=== PATIENT | male | born 1940 | race Hispanic/Latino ===

== ENCOUNTER 2017-12-12 01:36 | Emergency (ER) | payer OTHER ==
[2017-12-12 01:57] LABS: APPEARANCE,URINE Clear (CLEAR); BILIRUBIN,URINE Negative (NEGATIVE); COLOR,URINE Yellow (YELLOW); GLUCOSE, URINE (UA) Negative (NEGATIVE); KETONES,URINE Negative (NEGATIVE); LEUKOCYTE ESTERASE ,URINE Large (NEGATIVE); NITRATE,URINE Negative (NEGATIVE); OCCULT BLOOD,URINE Moderate (NEGATIVE); PH,URINE 6.5 (5.0-8.0); PROTEIN,URINE POS 2+ (NEGATIVE); UROBILINOGEN,URINE 0.2 mg/dL (0.2-1.0)
[2017-12-12 02:28] LABS: BACTERIA,URINE Few /HPF (None Seen); WBC,URINE 26-50 /HPF (0-1)
[2017-12-12] MEDS ORDERED: SODIUM CHLORIDE 0.9% 1000ML 1,000 ML IV ONE (02:33)
[2017-12-12] MEDS ORDERED: LEVOFLOXACIN 500 MG/D5W 100 ML 100 ML ONE (02:34)
== END 2017-12-12 04:06 | disposition home or self-care (01) ==
LOC: EDH 01:36
DX: N39.0 Urinary tract infection, site not specified (principal); I10 Essential (primary) hypertension; E78.5 Hyperlipidemia, unspecified
CPT/HCPCS: 81001; 87088; 87186; 96365; 99284; J1956; J7030

== ENCOUNTER 2021-11-17 21:47 | Observation (INO) | payer OTHER ==
[~2021-11-17] VITALS: Ht 162.6 cm; Wt 96.0 kg
[2021-11-17 23:14] LABS: ABG HCO3 25.4 mmol/L (21.0-28.0); ABG OXYGEN SATURATION 94.6 % (95.0-99.0); ABG PCO2 40 mmHg (35-48)
[2021-11-17 23:21] LABS: BASOPHILS % (AUTO) 0.2 % (0.0-5.0); EOSINOPHILS % (AUTO) 1.4 % (0.0-8.0); HEMATOCRIT 38.1 % (42-54); LYMPHOCYTES % (AUTO) 23.7 % (21.0-51.0); MEAN CORPUSCULAR HEMOGLOBIN 28.5 pg (27.0-33.0); MEAN CORPUSCULAR HGB CONC 34.6 g/dL (32.0-36.0); MEAN CORPUSCULAR VOLUME 82.3 fL (79-99); MONOCYTES % (AUTO) 13.6 % (3.0-13.0); NEUTROPHILS % (AUTO) 60.7 % (40.0-77.0); PLATELET COUNT (AUTO) 190 K/uL (130-400); RED BLOOD CELL COUNT(AUTO) 4.63 MIL/uL (4.50-6.20); RED CELL DISTRIBUTION WIDTH 12.4 % (11.0-15.5); WHITE BLOOD COUNT (AUTO) 5.5 K/uL (4.8-10.8)
[2021-11-17] MEDS ORDERED: SOLU-MEDROL 125MG VIAL IVP ONE (23:30)
[2021-11-17] MEDS ORDERED: ALBUTEROL 0.083% 2.5 MG/3 ML INH IH ONE ×3 (23:30)
[2021-11-17 23:31] LABS: CREATININE 0.9 mg/dL (0.5-1.5); POTASSIUM 3.3 mmol/L (3.5-5.1)
[2021-11-17 23:36] LABS: ALBUMIN 3.5 g/dL (3.5-5.0); BILIRUBIN,TOTAL 0.4 mg/dL (0.2-1.0); TOTAL PROTEIN, SERUM 6.7 g/dL (6.0-8.3)
[2021-11-17 23:50] LABS: B-TYPE NATRIURETIC PEPTIDE 38 pg/mL (0-100)
[2021-11-18] MEDS ORDERED: ALBUTEROL 0.083% 2.5 MG/3 ML INH IH ONE (01:00)
[2021-11-18] MEDS ORDERED: AZITHROMYCIN 500MG+NS 250ML IVPB ONE (01:00)
[2021-11-18] MEDS ORDERED: CEFTRIAXONE 1G VIAL IVP ONE (01:00)
[2021-11-18] MEDS ORDERED: LIDOCAINE HCL 2% VISCOUS 15 ML UDCUP PO ONE (01:00)
[2021-11-18] MEDS ORDERED: MAG/ALUM/SIMETH 30 ML UDCUP PO ONE (01:00)
[2021-11-18] MEDS ORDERED: ONDANSETRON 4MG INJ IV PRN (01:30)
[2021-11-18] MEDS: CEFTRIAXONE 1G VIAL IV SCH (01:30)
[2021-11-18] MEDS: GUAIFENESIN-CODEINE 5 ML SYRUP PO PRN ×2 (02:04→21:25)
[2021-11-18] MEDS ORDERED: CARV12.511 PO (02:11)
[2021-11-18] MEDS ORDERED: SOLI10TA7 PO (02:11)
[2021-11-18] MEDS ORDERED: PRED5DRO25 OP (02:11)
[2021-11-18] MEDS ORDERED: LOTE5OS OD (02:11)
[2021-11-18] MEDS ORDERED: OMEP40CA21 PO (02:11)
[2021-11-18] MEDS ORDERED: ERGO500093 PO (02:11)
[2021-11-18] MEDS ORDERED: AMLO-143 PO (02:11)
[2021-11-18] MEDS ORDERED: ROSU20TA31 PO (02:11)
[2021-11-18] MEDS ORDERED: HYDR25TA PO (02:11)
[2021-11-18] MEDS: POTASSIUM CHLORIDE 10% ELIXIR 20 MEQ/15 ML UDCUP PO PRN ×3 (02:23→06:53)
[2021-11-18] MEDS ORDERED: LIDOCAINE HCL-MPF 1% 2ML VIAL IV PRN (02:30)
[2021-11-18] MEDS ORDERED: POTASSIUM CHLORIDE 10MEQ/100ML 100 ML IV PRN (02:30)
[2021-11-18 03:05] VITALS: BP 148/84
[2021-11-18] MEDS ORDERED: 0.9% NACL 250ML 250 ML ONE (05:31)
[2021-11-18] MEDS: DOXYCYCLINE 100MG+NS 250ML 250 ML IV SCH ×2 (05:38→13:12)
[2021-11-18] MEDS: IPRATROPIUM/ALBUTEROL SULFATE 3 ML SOLUTION IH SCH ×4 (06:21→23:37)
[2021-11-18 08:00] VITALS: BP 139/74
[2021-11-18] MEDS: ENOXAPARIN SODIUM 40 MG/0.4 ML SYRINGE SQ SCH (08:22)
[2021-11-18] MEDS: OSELTAMIVIR PHOSPHATE 75 MG CAP PO SCH ×2 (08:22→21:25)
[2021-11-18] MEDS ORDERED: SOLU-MEDROL 125MG VIAL IV SCH (09:00)
[2021-11-18] MEDS ORDERED: FAMOTIDINE 20MG TAB PO SCH (09:00)
[2021-11-18] MEDS: SOLIFENACIN 10 MG PO SCH (09:00)
[2021-11-18] MEDS ORDERED: LOTEPREDNOL 0.2% OD SCH (09:00)
[2021-11-18 09:18] LABS: BASOPHILS % (AUTO) 0.2 % (0.0-5.0); HEMATOCRIT 41.3 % (42-54); LYMPHOCYTES % (AUTO) 8.8 % (21.0-51.0); MEAN CORPUSCULAR HEMOGLOBIN 28.5 pg (27.0-33.0); MEAN CORPUSCULAR HGB CONC 34.1 g/dL (32.0-36.0); MEAN CORPUSCULAR VOLUME 83.6 fL (79-99); MONOCYTES % (AUTO) 1.4 % (3.0-13.0); NEUTROPHILS % (AUTO) 89.2 % (40.0-77.0); PLATELET COUNT (AUTO) 214 K/uL (130-400); RED BLOOD CELL COUNT(AUTO) 4.94 MIL/uL (4.50-6.20); RED CELL DISTRIBUTION WIDTH 12.5 % (11.0-15.5)
[2021-11-18 09:43] LABS: ALBUMIN 3.7 g/dL (3.5-5.0); BILIRUBIN,TOTAL 0.5 mg/dL (0.2-1.0); CREATININE 1.1 mg/dL (0.5-1.5); THYROID STIMULATING HORMONE 0.97 uIU/mL (0.36-3.74); TOTAL PROTEIN, SERUM 7.4 g/dL (6.0-8.3)
[2021-11-18] MEDS: PANTOPRAZOLE 40 MG TAB DR PO SCH (09:46)
[2021-11-18] MEDS: CARVEDILOL 12.5 MG TABLET PO SCH ×2 (09:46→21:25)
[2021-11-18 10:23] LABS: ERYTHROCYTE SEDIMENTATION RATE 8 MM/HR (0-20)
[2021-11-18 11:52] VITALS: BP 135/81
[2021-11-18 12:29] LABS: HEMOGLOBIN A1C 6.7 % (4.0-6.0)
[2021-11-18] MEDS: 0.9%NACL 1000ML 1,000 ML IV SCH (13:12)
[2021-11-18] MEDS: AMLODIPINE 5 MG TAB PO SCH (13:13)
[2021-11-18] MEDS: FLUTICASONE PROPIONATE 50MCG/SPRAY 16 GM BOTTLE EN SCH ×2 (13:15→21:00)
[2021-11-18] MEDS: PREDNISOLONE 1% DROPS OP SCH ×3 (13:16→21:00)
[2021-11-18 16:00] VITALS: BP 143/82
[2021-11-18] MEDS: BENZONATATE 100 MG CAPSULE PO SCH (16:38)
[2021-11-18] MEDS: BUDESONIDE 0.5 MG/2 ML INH IH SCH (18:53)
[2021-11-18 20:03] VITALS: BP 146/62
[2021-11-18] MEDS: ATORVASTATIN 40 MG TABLET PO SCH (21:24)
[2021-11-18] MEDS: INSULIN HUMULIN R 100 UNIT/ML 3ML SQ SCH (22:10)
[2021-11-18 23:53] VITALS: BP 152/73
[2021-11-19] MEDS ORDERED: 0.9% NACL 250ML 250 ML ONE ×2 (01:13→13:49)
[2021-11-19] MEDS: DOXYCYCLINE 100MG+NS 250ML 250 ML IV SCH ×2 (01:28→14:03)
[2021-11-19] MEDS: CEFTRIAXONE 1G VIAL IV SCH (01:28)
[2021-11-19 04:06] VITALS: BP 165/79
[2021-11-19 04:52] LABS: HEMATOCRIT 36.7 % (42-54); LYMPHOCYTES % (AUTO) 11.2 % (21.0-51.0); MEAN CORPUSCULAR HGB CONC 33.5 g/dL (32.0-36.0); MEAN CORPUSCULAR VOLUME 83.4 fL (79-99); MONOCYTES % (AUTO) 6.8 % (3.0-13.0); NEUTROPHILS % (AUTO) 81.7 % (40.0-77.0); PLATELET COUNT (AUTO) 193 K/uL (130-400); RED CELL DISTRIBUTION WIDTH 12.5 % (11.0-15.5); WHITE BLOOD COUNT (AUTO) 7.3 K/uL (4.8-10.8)
[2021-11-19 05:25] LABS: CREATININE 0.7 mg/dL (0.5-1.5); MAGNESIUM 2.4 mg/dL (1.80-2.40); POTASSIUM 3.7 mmol/L (3.5-5.1)
[2021-11-19] MEDS: IPRATROPIUM/ALBUTEROL SULFATE 3 ML SOLUTION IH SCH ×4 (06:09→23:13)
[2021-11-19] MEDS: BUDESONIDE 0.5 MG/2 ML INH IH SCH ×2 (06:09→17:40)
[2021-11-19] MEDS: INSULIN HUMULIN R 100 UNIT/ML 3ML SQ SCH ×4 (06:26→21:00)
[2021-11-19] MEDS: 0.9%NACL 1000ML 1,000 ML IV SCH (06:30)
[2021-11-19] MEDS: BENZONATATE 100 MG CAPSULE PO SCH ×4 (07:37→23:29)
[2021-11-19 08:00] VITALS: BP 121/70
[2021-11-19] MEDS: SOLIFENACIN 10 MG PO SCH (09:00)
[2021-11-19] MEDS: PREDNISOLONE 1% DROPS OP SCH (09:00)
[2021-11-19] MEDS: FLUTICASONE PROPIONATE 50MCG/SPRAY 16 GM BOTTLE EN SCH ×2 (09:00→21:32)
[2021-11-19] MEDS: CARVEDILOL 12.5 MG TABLET PO SCH ×2 (10:49→21:09)
[2021-11-19] MEDS: PANTOPRAZOLE 40 MG TAB DR PO SCH (10:50)
[2021-11-19] MEDS: AMLODIPINE 5 MG TAB PO SCH (10:50)
[2021-11-19] MEDS: ENOXAPARIN SODIUM 40 MG/0.4 ML SYRINGE SQ SCH (10:50)
[2021-11-19] MEDS: OSELTAMIVIR PHOSPHATE 75 MG CAP PO SCH ×2 (11:03→21:09)
[2021-11-19] MEDS: GUAIFENESIN-CODEINE 5 ML SYRUP PO PRN ×2 (11:44→21:26)
[2021-11-19 12:00] VITALS: BP 127/76
[2021-11-19] MEDS: KCL 20 MEQ ERTAB PO PRN ×2 (14:07→21:12)
[2021-11-19 16:00] VITALS: BP 135/75
[2021-11-19 19:59] VITALS: BP 172/66
[2021-11-19] MEDS: ATORVASTATIN 40 MG TABLET PO SCH (21:09)
[2021-11-19 23:22] VITALS: BP 159/85
[2021-11-20] MEDS: DOXYCYCLINE 100MG+NS 250ML 250 ML IV SCH (01:41)
[2021-11-20 04:13] VITALS: BP 147/75
[2021-11-20 05:04] LABS: EOSINOPHILS % (AUTO) 0.4 % (0.0-8.0); MEAN CORPUSCULAR HEMOGLOBIN 28.8 pg (27.0-33.0); MEAN CORPUSCULAR HGB CONC 34.1 g/dL (32.0-36.0); MEAN CORPUSCULAR VOLUME 84.5 fL (79-99); MONOCYTES % (AUTO) 9.9 % (3.0-13.0); NEUTROPHILS % (AUTO) 66.2 % (40.0-77.0); PLATELET COUNT (AUTO) 190 K/uL (130-400); RED BLOOD CELL COUNT(AUTO) 4.38 MIL/uL (4.50-6.20); RED CELL DISTRIBUTION WIDTH 12.8 % (11.0-15.5); WHITE BLOOD COUNT (AUTO) 7.8 K/uL (4.8-10.8)
[2021-11-20 05:12] LABS: APPEARANCE,URINE Clear (CLEAR); BILIRUBIN,URINE Negative (NEGATIVE); COLOR,URINE Yellow (YELLOW); GLUCOSE, URINE (UA) Negative (NEGATIVE); KETONES,URINE Negative (NEGATIVE); LEUKOCYTE ESTERASE ,URINE Negative (NEGATIVE); NITRATE,URINE Negative (NEGATIVE); OCCULT BLOOD,URINE Negative (NEGATIVE); PH,URINE 6.5 (5.0-8.0); PROTEIN,URINE Trace mg/dL (NEGATIVE)
[2021-11-20 05:37] LABS: ALBUMIN 3.1 g/dL (3.5-5.0); BILIRUBIN,TOTAL 0.5 mg/dL (0.2-1.0); CREATININE 0.8 mg/dL (0.5-1.5); TOTAL PROTEIN, SERUM 6.2 g/dL (6.0-8.3)
[2021-11-20] MEDS: BUDESONIDE 0.5 MG/2 ML INH IH SCH (06:19)
[2021-11-20] MEDS: IPRATROPIUM/ALBUTEROL SULFATE 3 ML SOLUTION IH SCH (06:19)
[2021-11-20] MEDS: INSULIN HUMULIN R 100 UNIT/ML 3ML SQ SCH (06:42)
[2021-11-20] MEDS: BENZONATATE 100 MG CAPSULE PO SCH (06:44)
[2021-11-20 08:00] VITALS: BP 188/91
[2021-11-20] MEDS: AMLODIPINE 5 MG TAB PO SCH (08:22)
[2021-11-20] MEDS: PANTOPRAZOLE 40 MG TAB DR PO SCH (08:23)
[2021-11-20] MEDS: CARVEDILOL 12.5 MG TABLET PO SCH (08:24)
[2021-11-20] MEDS: ENOXAPARIN SODIUM 40 MG/0.4 ML SYRINGE SQ SCH (08:26)
[2021-11-20] MEDS: FLUTICASONE PROPIONATE 50MCG/SPRAY 16 GM BOTTLE EN SCH (08:27)
[2021-11-20] MEDS: SOLIFENACIN 10 MG PO SCH (08:29)
[2021-11-20] MEDS: OSELTAMIVIR PHOSPHATE 75 MG CAP PO SCH (08:34)
[2021-11-20] MEDS ORDERED: FLUC150T PO (09:29)
[2021-11-20] MEDS ORDERED: OSEL75 PO (09:29)
[2021-11-20] MEDS ORDERED: GUAIFENESIN-DM 200/20 MG 10 ML PO PRN (11:00)
[2021-11-20 12:00] VITALS: BP 123/72
== END 2021-11-20 15:01 | disposition home or self-care (01) ==
LOC: EDH 21:47 → EDHIP 11-18 01:28 → INTOOBSV 11-18 01:28 → 3BH 11-18 03:04
PROVIDERS: ADMIT Internal Medicine; ATTEND Internal Medicine
DX: J09.X2 Influenza due to identified novel influenza A virus with other respiratory manifestations (principal); Z20.822 Contact with and (suspected) exposure to COVID-19; J45.901 Unspecified asthma with (acute) exacerbation; J18.9 Pneumonia, unspecified organism; I11.0 Hypertensive heart disease with heart failure; I50.9 Heart failure, unspecified; E87.6 Hypokalemia; E86.1 Hypovolemia; E87.1 Hypo-osmolality and hyponatremia; R32 Unspecified urinary incontinence; C61 Malignant neoplasm of prostate; E78.00 Pure hypercholesterolemia, unspecified; E78.5 Hyperlipidemia, unspecified; Z85.46 Personal history of malignant neoplasm of prostate; Z87.442 Personal history of urinary calculi; Z92.21 Personal history of antineoplastic chemotherapy; Z79.899 Other long term (current) drug therapy; Z98.890 Other specified postprocedural states
CPT/HCPCS: 36415 ×4; 36600; 71045 ×2; 80048; 80053 ×3; 81003; 82550; 82803; 82948 ×6; 83036; 83735 ×2; 83880; 84100; 84145 ×2; 84443; 84484; 85025 ×4; 85651; 86140; 87040 ×2; 87071; 87205; 87635; 87804 ×2; 93005; 94640 ×13; 94664; 94760 ×2; 96365; 96366 ×5; 96367; 96372 ×3; 96375 ×2; 96376 ×2; 97161; 99285; C9803; G0378 ×5; J0456; J0696 ×2; J1650 ×3; J1815; J2930 ×2; J3490 ×5; J7050 ×3; J7510

== ENCOUNTER 2022-03-01 21:59 | Emergency (ER) | payer OTHER ==
[~2022-03-01] VITALS: Ht 167.6 cm; Wt 92.1 kg
[~2022-03-01 21:59] MED LIST: AMLO-143 PO; CARV12.511 PO; ERGO500093 PO; FLUC150T PO; HYDR25TA PO; LOTE5OS OD; OMEP40CA21 PO; OSEL75 PO; PRED5DRO25 OP; ROSU20TA31 PO; SOLI10TA7 PO
[2022-03-01 23:48] VITALS: BP 151/74
[2022-03-01 23:56] LABS: APPEARANCE,URINE CLEAR (CLEAR); BILIRUBIN,URINE NEGATIVE (NEGATIVE); COLOR,URINE YELLOW (YELLOW); GLUCOSE, URINE (UA) NEGATIVE (NEGATIVE); KETONES,URINE NEGATIVE (NEGATIVE); LEUKOCYTE ESTERASE ,URINE NEGATIVE (NEGATIVE); NITRATE,URINE NEGATIVE (NEGATIVE); OCCULT BLOOD,URINE NEGATIVE (NEGATIVE); PROTEIN,URINE NEGATIVE (NEGATIVE); UROBILINOGEN,URINE 0.2 mg/dL (0.2-1.0)
== END 2022-03-02 01:09 | disposition home or self-care (01) ==
LOC: EDH 21:59
DX: R42 Dizziness and giddiness (principal); I10 Essential (primary) hypertension; K21.9 Gastro-esophageal reflux disease without esophagitis; E78.00 Pure hypercholesterolemia, unspecified; Z79.899 Other long term (current) drug therapy; Z98.890 Other specified postprocedural states
CPT/HCPCS: 81003; 93005

== ENCOUNTER 2025-07-20 01:22 | Inpatient (IN) | payer OTHER ==
[~2025-07-20] VITALS: Ht 167.6 cm; Wt 78.5 kg
--- NOTE | 2025-07-20 01:42 | EKG ---
[facility] Test Date: 2025-07-20 Test Time: 01:33:49 Pat Name: SIMON MCGREGOR Department: ED Room: 425 Gender: M Call Out Clerk: [id number] : 1940 Requested By: DARRELL ALMONTE Order Number: [id number] Reading MD: Jermaine Ray Measurements Intervals [place] Rate: 61 P: 56 [place]: 195 QRS: 25 QRSD: 80 T: 96 QT: 421 QTc: 425 Interpretive Statements Sinus rhythm Probable left atrial enlargement Probable LVH with secondary repol abnrm Compared to ECG 07/03/2025 21:09:58 No significant changes Electronically Signed On 07-23-2025 13:04:07 UNCRATER by Jermaine Ray Please click the below link to view image of tracing.
[2025-07-20 01:53] LABS: IMMATURE GRANULOCYTE ABSOLUTE 0.05 K/uL (0-1); NUCLEATED RED BLOOD CELLS 0.0 % (0.0-0.19); PLATELET COUNT (AUTO) 235 K/uL (130-400); RED BLOOD CELL COUNT(AUTO) 3.91 MIL/uL (4.50-6.20); RED CELL DISTRIBUTION WIDTH 14.2 % (11.0-15.5); WHITE BLOOD COUNT (AUTO) 10.0 K/uL (4.8-10.8)
[2025-07-20 02:02] LABS: CREATININE 0.7 mg/dL (0.5-1.3); GLOMERULAR FILTR. RATE CALC 91.0 mL/min (>90); GLUCOSE,RANDOM 124.0 mg/dL (70-105); SODIUM SERUM 141.0 mmol/L (136-145); UREA NITROGEN, BLOOD 15.0 mg/dL (7-18)
[2025-07-20 02:08] LABS: ASPARTATE AMINOTRANSFERASE 102.0 U/L (10-37); TOTAL PROTEIN, SERUM 6.7 g/dL (6.0-8.3)
--- NOTE | 2025-07-20 02:15 | ERN ---
General Chief Complaint: Hypertension Stated Complaint: C/O HIGH B/P Time Seen by MD: 01:25 Time Seen by Midlevel: 01:25 Source: patient History of Present Illness Initial Comments The patient is an 84-year-old male she has been with a past medical history of hypertension and recent aortic valve replacement last month presents to the emergency department for evaluation of high blood pressure and upper abdominal pain that started earlier tonight. Allergies: Coded Allergies: No Known Allergies (Unverified Allergy, Unknown, 11/17/21) Home Meds Active Scripts Metoprolol Tartrate (Lopressor) 25 Mg Tab, 12.5 MG PO BID, #60 TAB Prov:[facility] 06/28/25 Famotidine (Famotidine) 20 Mg Tablet, 20 MG PO BID, #60 TAB Prov:[facility] 06/28/25 Atorvastatin Calcium (LIPITOR) 40 Mg Tablet, 40 MG PO HS, #60 TAB Prov:[facility] 06/28/25 Aspirin (ASPIRIN 81 MG ECTAB) 81 Mg Ectab, 81 MG PO DAILY, #60 TAB.EC Prov:[facility] 06/28/25 Reported Medications Furosemide (Furosemide) 20 Mg Tablet, 1 TAB PO BID for 30 Days, #30 TAB 0 Refills 07/04/25 Clonidine HCl (Clonidine HCl) 0.1 Mg Tablet, 0.1 MG PO DAILY PRN for IF SBP GREATER THAN 150, TAB 06/09/25 Prednisolone Acetate/Pf (Prednisolone Acet 1% Eye Drop) 1 % Drops.susp, 5 ML OP QID PRN for ITCHING MDD 1, DROP 11/18/21 Ergocalciferol (Vitamin D2) (Vitamin D2) 1,250 Mcg Capsule, 1250 MCG PO QWEEK, CAP 11/18/21 Past Medical History Past Medical History: High Cholesterol, Heart Disease, Hypertension Medical History Other: PROSTATE CANCER Past Surgical History: Other Surgical History Other: OPEN HEART SX; AORTIC VALVE REPLACEMENT (06/19/2025) Social History Social History: Negative ROS Dictation CONSTITUTIONAL: Negative except for HPI HEAD/FACE: Negative except for HPI EENT: Negative except for HPI RESPIRATORY: Negative except for HPI GASTROINTESTINAL/ABDOMINAL: Negative except for HPI GENITOURINARY: Negative except for HPI MUSCULOSKELETAL: Negative except for HPI INTEGUMENTARY: Negative except for HPI NEUROLOGICAL/PSYCH: Negative except for HPI HEMATOLOGIC/LYMPHATIC: Negative except for HPI All Systems Negative, Except as noted above. 13 point review of systems assessed and all negative except for above. Physical Exam Physical Exam Dictation Vital Signs reviewed General Appearance: Alert, oriented x 3, no acute distress, well developed, nourished. Head and Face: non-traumatic. Eyes: PERRL, pink conjunctivas, eyelid no trauma, anterior chamber with arcus senilis. Ears: Pinnas intact and no signs of trauma or erythema ear canals clear and no discharge TM no erythema Nose: No discharge, no bleeding. Oropharynx: Mouth normal, tongue pink, pharynx clear,no erythema, tonsils no exudates, no abscesses noted, mucous membrane moist Neck: Supple, non-tender, no thyromegaly, no masses, no JVD, no bruits Breast:Deferred Chest:No tenderness, no crepitus, no paradoxical movement, no retractions Lungs:Clear, well-ventilated, symmetric, no rales, no wheezing, no rhonchi, no stridor, good breath sounds bilaterally Heart: Regular rate, regular rhythm, no murmur, no gallops Vascular: no peripheral edema, Abdomen: Soft, positive bowel sounds, nondistended, no guarding, nontender, no rebound, no masses no hepatomegaly, no splenomegaly, no Scott's sign, no hernias. Rectal: Deferred Genital: Deferred Neurological: Normal speech, motor function intact, sensory function intact Musculoskeletal: Neck nontender, full range of motion, back nontender, full range of motion, Extremities: nontender, full range of motion Skin: Color pink, dry, no turgor, no rash, no lacerations, no abrasions, no contusions. Lymphatic: Deferred Results Laboratory and Microbiology Lab and Micro Result Laboratory Tests Test 07/20/25 01:44 07/20/25 03:16 White Blood Count 10.0 K/uL (4.8-10.8) Red Blood Count 3.91 MIL/uL (4.50-6.20) L Hemoglobin 11.3 g/dL (14.0-18.0) L Hematocrit 34.4 % (42-54) L Mean Corpuscular Volume 88.0 fL (79-99) Mean Corpuscular Hemoglobin 28.9 pg (27.0-33.0) Mean Corpuscular Hemoglobin Concent 32.8 g/dL (32.0-36.0) Red Cell Distribution Width 14.2 % (11.0-15.5) Platelet Count 235 K/uL (130-400) Mean Platelet Volume 9.9 fL (7.5-10.5) Immature Granulocyte % (Auto) 0.5 % (0-1) Neutrophils (%) (Auto) 78.6 % (40.0-77.0) H Lymphocytes (%) (Auto) 10.0 % (21.0-51.0) L Monocytes (%) (Auto) 5.8 % (3.0-13.0) Eosinophils (%) (Auto) 4.8 % (0.0-8.0) Basophils (%) (Auto) 0.3 % (0.0-5.0) Neutrophils # (Auto) 7.8 K/uL (1.8-7.7) H Lymphocytes # (Auto) 1.0 K/uL (1.0-4.8) Monocytes # (Auto) 0.6 K/uL (0.1-1.0) Eosinophils # (Auto) 0.48 K/uL (0.00-0.70) Basophils # (Auto) 0.03 K/uL (0.00-0.20) Absolute Immature Granulocyte (auto 0.05 K/uL (0-1) Nucleated Red Blood Cells 0.0 % (0.0-0.19) White Cell Morphology Comment See comments Sodium Level 141 mmol/L (136-145) Potassium Level 3.9 mmol/L (3.5-5.1) Chloride Level 103 mmol/L (101-111) Carbon Dioxide Level 31 mmol/L (21-32) Blood Urea Nitrogen 15 mg/dL (7-18) Creatinine 0.7 mg/dL (0.5-1.3) Glomerular Filtration Rate Calc 91 mL/min (>90) Random Glucose 124 mg/dL (70-105) H Total Calcium 9.0 mg/dL (8.5-10.1) Total Bilirubin 0.8 mg/dL (0.2-1.0) Direct Bilirubin 0.4 mg/dL (0.0-0.3) H Aspartate Amino Transf (AST/SGOT) 102 U/L (10-37) H Alanine Aminotransferase (ALT/SGPT) 94 U/L (12-78) H Alkaline Phosphatase 98 U/L (50-136) Troponin I High Sensitivity 18 ng/L (4-75) Total Protein 6.7 g/dL (6.0-8.3) Albumin 3.2 g/dL (3.5-5.0) L Lipase 56 U/L (16-77) Urine Color LIGHT-YELLOW (YELLOW) Urine Appearance CLEAR (CLEAR) Urine pH 7.0 (5.0-8.0) Urine Specific [place] 1.027 (1.001-1.031) Urine Protein NEGATIVE mg/dL (NEGATIVE) Urine Glucose (UA) NEGATIVE mg/dL (NEGATIVE) Urine Ketones NEGATIVE mg/dL (NEGATIVE) Urine Occult Blood NEGATIVE (NEGATIVE) Urine Nitrate NEGATIVE (NEGATIVE) Urine Bilirubin NEGATIVE mg/dL (NEGATIVE) Urine Urobilinogen 0.2 mg/dL (0.2-1.0) Urine Leukocyte Esterase NEGATIVE Olivier/uL Labs Reviewed?: Yes MDM Received sign-out from mid-level provider. Patient is an 84-year-old male h istory of TAVR on 06/19/2025 here for evaluation of hypertension. On exam patient noted to have abdominal pain. This is likely the source of his hypertension. We provided him with a analgesia, and a CT scan which showed acute cholecystitis. We will also had an ultrasound to further evaluate cholecystitis. He will be started on Zosyn and admitted to the hospitalist for further management and evaluation. General surgery to be consulted in the morning as patient will likely require cardiac clearance prior to surgery. Patient was advised of his CT findings as well as the laboratory. We will admit the patient. ED Course Orders Procedure Category Date Status Time Cbc With Differential LAB 07/20/25 Complete : Basic Metabolic Panel LAB 07/20/25 Complete : Urinalysis Profile LAB 07/20/25 Complete Troponin I High LAB 07/20/25 Complete Sensitivity :28 12 Lead Ekg Tracing- EKG 07/20/25 Complete Technical 01: Ct Abdomen/Pelvis CT 07/20/25 Resulted W/Contrast 01:50 Hydralazine 20mg Inj PHA 07/20/25 Complete (Apresoline 20mg In 02:00 Hepatic Function Panel LAB 07/20/25 Complete 01:44 Lipase LAB 07/20/25 Complete 01:44 Chest 1vw RAD 07/20/25 Resulted 02:04 Ondansetron 4mg Inj PHA 07/20/25 Complete (Zofran 4mg Inj) 03:30 Morphine 2mg Syg PHA 07/20/25 Complete (Morphine 2mg Syg) 03:30 Us Abdominal Ruq\Ltd US 07/20/25 Logged 04:06 Zosyn 3.375gm+Ns 50ml PHA 07/20/25 Complete (Zosyn 3.375gm+Ns 04:30 Current Medications Medications (Trade) Dose Ordered Sig/Latasha Route PRN Reason Start Time Stop Time Status Last Admin Dose Admin Hydralazine HCl (APRESOLine 20MG INJ) 10 mg ONCE ONCE IV 07/20/25 02:00 07/20/25 02:01 DC 07/20/25 02:27 Morphine Sulfate (morPHINE 2MG SYG) 2 mg ONCE ONCE IVP 07/20/25 03:30 07/20/25 03:31 DC 07/20/25 03:41 Ondansetron HCl (zoFRAN 4MG INJ) 4 mg ONCE ONCE IVP 07/20/25 03:30 07/20/25 03:31 DC 07/20/25 03:40 Piperacillin Sod/ Tazobactam Sod (Zosyn 3.375gm+NS 50ml) 3.375 gm ONCE ONCE IV 07/20/25 04:30 07/20/25 04:31 DC Vital Signs Date Time Temp Pulse Resp B/P (MAP) Pulse Ox O2 Delivery O2 Flow Rate FiO2 07/20/25 04:07 69 18 160/72 99 Room Air* 0 07/20/25 03:24 72 18 189/68 98 Room Air* 0 07/20/25 02:27 185/73 07/20/25 02:22 97.0 61 17 185/73 97 Room Air* 0 07/20/25 01:27 96.4 62 20 193/70 97 Room Air DX & DISP Disposition: Inpatient Departure Impression: Primary Impression: Acute cholecystitis Additional Impressions: Hypertension, History of transcatheter aortic valve replacement (TAVR) Condition: Stable Referrals: SELF,REFERRAL (PCP) LILIAN TAYLOR PAC Jul 20, 2025 02:15 DARRELL ALMONTE MD Jul 20, 2025 04:38
[2025-07-20 03:37] LABS: APPEARANCE,URINE CLEAR (CLEAR); GLUCOSE, URINE (UA) NEGATIVE (NEGATIVE); LEUKOCYTE ESTERASE ,URINE NEGATIVE Leu/uL (NEGATIVE); NITRATE,URINE NEGATIVE (NEGATIVE); OCCULT BLOOD,URINE NEGATIVE (NEGATIVE)
[2025-07-20 03:38] LABS: ADD UA MICROSCOPIC NO
--- NOTE | 2025-07-20 04:00 | HMCIMG ---
EXAM: CT Abdomen and Pelvis without and with IV contrast CLINICAL HISTORY: RUQ abd pain (Hx) / RUQ abd pain, WITHSagittal (DICOM Hx) / ABD PAIN (Pt comments) (DICOM Hx) TECHNIQUE: Thin collimated axial CT images of the abdomen and pelvis were obtained, with sagittal and coronal reformatted images also submitted. A CT scan is done according to ALARA (As Low As Reasonably Achievable). COMPARISON: Prior CT abdomen and pelvis dated July 04, 2025. FINDINGS: Small pleural effusion and lower lobe compressive atelectasis on the right side. Scattered coronary artery calcifications. No focal abnormality within the liver, pancreas, spleen, adrenals, or kidneys. Moderately distended gallbladder measuring 4.9 cm in the anterior-posterior dimension. Mild gallbladder wall edema and pericholecystic fat stranding are consistent with changes of cholecystitis. Tiny 2 mm calcific focus within the inferior wall of the gallbladder. Moderate amount of fecal residue in the large bowel loops. With fecal impaction in the distal sigmoid colon and rectum. There is no obvious bowel wall thickening. Bowel loops are normal in caliber without evidence of obstruction or ileus. The appendix is normal. There is no abnormality within the urinary bladder. Probable post-prostatectomy status. Surgical clips in the pelvis. Abdominal and pelvic vessels are patent. No lymphadenopathy. No free fluid. A well-defined collection 4.7 x 6.0 cm in the right inguinal region with surgical clips. Minimal fat stranding in the right inguinal region and the right proximal thigh are probable changes of cellulitis. There is no acute osseous abnormality. Degenerative changes in the bilateral sacroiliac, superolateral hip joint, and multilevel degenerative facet arthropathy. Mild ligamentum flavum hypertrophy. Moderate spinal canal stenosis at the L4-L5 level. IMPRESSIONS: Acute calculous cholecystitis. This is a new finding compared to the previous CT. Recommend ultrasound of the gallbladder for further evaluation. Small pleural effusion and lower lobe compressive atelectasis on the right side with mild interval improvement compared to the previous CT. A well-defined collection 4.7 x 6.0 cm in the right inguinal region with surgical clips, concerning for postsurgical seroma. Mild interval increase in size of this collection compared to the previous CT. /David
--- NOTE | 2025-07-20 04:04 | HMCIMG ---
EXAM: CR Chest, 1 view CLINICAL HISTORY: Chest pain. COMPARISON: 07/07/2025. FINDINGS: Metal implant around the right third costosternal junction in the area. The lungs show no infiltrates or other acute findings. No pleural effusion or pneumothorax. The cardiomediastinal silhouette is within normal limits. No acute osseous abnormality. IMPRESSION: No acute cardiopulmonary process is evident. No adverse interval change. /[place]
[2025-07-20] MEDS: ZOSYN 3.375GM +NS 50ML IV ONE (04:54)
--- NOTE | 2025-07-20 05:20 | HMCIMG ---
EXAM: US Abdomen, Right Upper Quadrant. CLINICAL HISTORY: Acute cholecystitis. TECHNIQUE: Right upper quadrant sonography performed with image documentation. COMPARISON: Today's CT abdomen and pelvis. FINDINGS: LIVER: Liver measures 16.7 cm and shows raised echogenicity. No mass. GALLBLADDER: The gallbladder is distended, measuring 13 cm. Gallbladder wall measures 0.3 cm. No gallstones are evident. COMMON BILE DUCT: CBD measures 0.5 cm. PANCREAS: The pancreas is obscured due to overlying bowel gas. RIGHT KIDNEY: Right kidney measures 11.9 x 4.6 x 5.3 cm. Normal renal contours. No renal mass or calculus. No hydronephrosis. Limited examination due to abundant intestinal air. IMPRESSION: Thickened gallbladder wall measuring 3 mm. The possibility of acute cholecystitis cannot be entirely ruled out. Recommend HIDA scan for further evaluation. Hepatic steatosis. Limited examination due to abundant intestinal air. /David
--- NOTE | 2025-07-20 05:54 | HP ---
[facility] Date of Service: Jul 20, 2025 Time of Service: 05:38 PCP: Mike Tubbs HISTORY OF PRESENT ILLNESS: This is an 84-year-old Ivorian-speaking male past medical history of aortic stenosis, hypertension, hyperlipidemia, prostate cancer, and kidney stone who presents to the Ed for complaints of abdominal pain located around bilateral lower quadrant and right upper quadrant associated with nausea but no vomiting started around 9:00 pm last night.Patient states he ate green peas,carrots and b oiled egg prior to having abdominal pain.Patient reports his last bowel movement was yesterday and was normal.Patient also states this is the first time that he experience this problem .Patient states he had a minimally invasive cardiac surgical aortic valve replacement done on 06/19/2025 performed by and patient's art department head is Seen and examined patient in the ED awake,alert and coherent appears comfortable ,states 0/10 pain level at this time.Patient denies fever,chills,vomiting,d iarrhea,chest pain,palpitation and shortness of breath. Latest vital signs temperature 97, heart rate 73, blood pressure 149/67 saturation 97% on room air. Labs: WBC 10 one neutrophils 78, hemoglobin 11 hematocrit 34 platelet count 235. Random glucose 124, direct bilirubin 0.4, AST 102, ALT 94 troponin 18 albumin 3.2. Urinalysis normal. Abdomen and pelvis with contrast result revealed acute calculous cholecystitis. This is a new finding compared to the previous CT. Recommend ultrasound of the gallbladder for further evaluation. Pleural effusion and lower lobe compressive atelectasis of the right side with mild interval improvement compared to the previous CT a well-defined collection 4.7 x 6.0 cm in the right inguinal region with surgical clips, concerning for postsurgical seroma. Mild interval increase in size of this collection compared to the previous CT. Chest x-ray result revealed no acute cardiopulmonary process. Rheumatoid ultrasound result revealed a thickened gallbladder wall measuring 3 mm. The possibility of acute cholecystitis can not be entirely ruled out. Recommend HIDA scan for further evaluation. Hepatic steatosis. Limited examination due to abundant intestinal air. While in the ER patient received hydralazine 10 mg IV, Zofran 4 mg IV, morphine 2 mg IV and Zosyn IV. We will admit patient for further medical management. REVIEW OF SYSTEMS CONSTITUTIONAL: Denies fevers, chills, or night sweats. No unintentional weight loss reported. NEUROLOGICAL: Denies headache, amaurosis fugax, motor weakness, sensory deficit, vertigo/spinning sensation, gait abnormalities, or tremors. ENT: No hearing loss, otalgia, otorrhea, rhinitis, rhinorrhea, hoarseness, or sore throat. CARDIOVASCULAR: Denies any exertional angina, dyspnea on exertion, orthopnea, paroxysmal nocturnal dyspnea, palpitations, life-threatening arrhythmias, claudication. PULMONARY: Denies any shortness of breath, cough, phlegm/sputum, hemoptysis, pleuritic chest pain. SLEEP: Denies morning headaches, daytime somnolence or napping. Denies difficulty falling asleep, staying asleep, waking from sleep. Denies knowledge of snoring. GASTROINTESTINAL: Right upper quadrant, bilateral lower quadrant pain and nausea Denies any type of dysphagia to either liquids or solids. Denies vomiting, pyrosis, early satiety, abdominal pain, diarrhea, constipation, or changes in stool consistency or caliber. Denies coffee-ground emesis, hematemesis, hematochezia, or melanotic stools. GENITOURINARY: Denies frequency, urgency, nocturia, hematuria or incontinence (Storage/Irritative symptoms.) Low urinary stream, straining to void, urinary intermittency or hesitancy, splitting of the voiding stream, terminal dribbling. ENDOCRINOLOGIC: Denies polyuria, polydipsia, polyphagia or heat/cold intolerances. HEMATOLOGIC: Denies thrombophilia/previous clots, or coagulopathy/bleeding disorders. ONCOLOGIC: Denies personal history of malignancy. DERMATOLOGIC: Denies rashes or pruritus. PSYCHIATRIC: Denies any suicidal or homicidal ideation. Denies hallucinations. PAST MEDICAL HISTORY: [ Aortic stenosis, hypertension, hyperlipidemia, prostate cancer and kidney stone ] PAST SURGICAL HISTORY: [ TURP robotic,hernia,cystoscopy,Aortic valve replacement ] PAST SOCIAL HISTORY: [ Patient lives alone. Patient denies alcohol tobacco and recreational drug use ] FAMILY HISTORY: [ Hypertension and cardiovascular disease] Coded Allergies: No Known Allergies (Unverified Allergy, Unknown, 11/17/21) PHYSICAL EXAM GENERAL APPEARANCE: The patient is awake, alert, and oriented, in no acute cardiopulmonary distress. NEUROLOGICAL: Cranial nerves II-XII grossly intact. Motor is 5/5 in bilateral upper and lower extremities proximal to distal. No sensory deficits. HEENT: Face is symmetric. Pupils are equal and reactive. Extraocular movements are intact. NECK: Supple. No JVD. No thyromegaly. No submental, submandibular, pre-/ postauricular, occipital or supraclavicular lymphadenopathy. CHEST: Normal chest expansion. No Telemetry. LUNGS: Absence of any rales, rhonchi or any wheezing. CARDIOVASCULAR: Regular. S1 and S2 normal. No appreciable rubs, murmurs or gallops. ABDOMEN: Soft, nontender, and nondistended. There is no rebound, voluntary guarding, or rigidity. : Deferred. No Newman. EXTREMITIES: Non-edematous and not cyanotic. No clubbing. Good capillary refill. SKIN: No skin breakdown. Vital Sign (Last 24 Hours) 07/20/25 07/20/25 02:22 05:31 Temp 97.0 Pulse 71 Resp 18 B/P (MAP) 165/65 Pulse Ox 98 O2 Delivery Room Air* O2 Flow Rate 0 FiO2 21 LABS: Laboratory: Test 07/20/25 03:16 07/20/25 01:44 Range/Units Urine Color LIGHT-YELLOW YELLOW Urine Appearance CLEAR CLEAR Urine pH 7.0 5.0-8.0 Urine Specific [place] 1.027 1.001-1.031 Urine Protein NEGATIVE NEGATIVE mg/dL Urine Glucose (UA) NEGATIVE NEGATIVE mg/dL Urine Ketones NEGATIVE NEGATIVE mg/dL Urine Occult Blood NEGATIVE NEGATIVE Urine Nitrate NEGATIVE NEGATIVE Urine Bilirubin NEGATIVE NEGATIVE mg/dL Urine Urobilinogen 0.2 0.2-1.0 mg/dL Urine Leukocyte Esterase NEGATIVE NEGATIVE Olivier/uL White Blood Count 10.0 4.8-10.8 K/uL Red Blood Count 3.91 L 4.50-6.20 MIL/uL Hemoglobin 11.3 L 14.0-18.0 g/dL Hematocrit 34.4 L 42-54 % Mean Corpuscular Volume 88.0 79-99 fL Mean Corpuscular Hemoglobin 28.9 27.0-33.0 pg Mean Corpuscular Hemoglobin Concent 32.8 32.0-36.0 g/dL Red Cell Distribution Width 14.2 11.0-15.5 % Platelet Count 235 130-400 K/uL Mean Platelet Volume 9.9 7.5-10.5 fL Immature Granulocyte % (Auto) 0.5 0-1 % Neutrophils (%) (Auto) 78.6 H 40.0-77.0 % Lymphocytes (%) (Auto) 10.0 L 21.0-51.0 % Monocytes (%) (Auto) 5.8 3.0-13.0 % Eosinophils (%) (Auto) 4.8 0.0-8.0 % Basophils (%) (Auto) 0.3 0.0-5.0 % Neutrophils # (Auto) 7.8 H 1.8-7.7 K/uL Lymphocytes # (Auto) 1.0 1.0-4.8 K/uL Monocytes # (Auto) 0.6 0.1-1.0 K/uL Eosinophils # (Auto) 0.48 0.00-0.70 K/uL Basophils # (Auto) 0.03 0.00-0.20 K/uL Absolute Immature Granulocyte (auto 0.05 0-1 K/uL Nucleated Red Blood Cells 0.0 0.0-0.19 % White Cell Morphology Comment See comments Sodium Level 141 136-145 mmol/L Potassium Level 3.9 3.5-5.1 mmol/L Chloride Level 103 101-111 mmol/L Carbon Dioxide Level 31 21-32 mmol/L Blood Urea Nitrogen 15 7-18 mg/dL Creatinine 0.7 0.5-1.3 mg/dL Glomerular Filtration Rate Calc 91 >90 mL/min Random Glucose 124 H 70-105 mg/dL Total Calcium 9.0 8.5-10.1 mg/dL Total Bilirubin 0.8 0.2-1.0 mg/dL Direct Bilirubin 0.4 H 0.0-0.3 mg/dL Aspartate Amino Transf (AST/SGOT) 102 H 10-37 U/L Alanine Aminotransferase (ALT/SGPT) 94 H 12-78 U/L Alkaline Phosphatase 98 50-136 U/L Troponin I High Sensitivity 18 4-75 ng/L Total Protein 6.7 6.0-8.3 g/dL Albumin 3.2 L 3.5-5.0 g/dL Lipase 56 16-77 U/L DIAGNOSTICS / RADIOLOGY: [ ] ASSESSMENT: Suspected acute cholecystitis POA Uncontrolled hypertension POA Transaminitis POA possible Right inguinal pstsurgical seroma per CT POA Chronic anemia POA History of aortic stenosis with valve replacement POA PLAN: We will admit patient in medical telemetry We will keep nothing by mouth Start on NS 100 mL x1 bag We will start on Zosyn IV Q 8 hours for empiric coverage We will start on Protonix 40 mg IV daily for GI prophylaxis We will replace electrolytes as needed per protocol We will add prn medication for fever,pain,cough , nausea and vomiting We will reconcile home meds once medlist available Will defer cardiology consultation to rounding provider for cardiac clearance once evaluated by Gen surgeon. We will seek general surgery consultation We will request labs in am Further orders to follow depending on above results Case discussed with attending physician and came up with above treatment and plan of care. ADVANCED CARE PLANNING 1. Which of the following were discussed? Hospice Care - No Therapeutic options - Yes Advance Directives - No Other discussions - 2. Discussed with who? Patient 3. Voluntary nature of this service was explained to the patient? Yes 4. Amount of time spent - 23 min 5. Reviewed by Physician? (if this service was performed by NPP) Yes Patient seen and examined by me. Agree with note by [facility] REP SEE ADDITIONAL ORDERS PER CHART DISCUSSED WITH NURSING STAFF KENIA BERMUDEZ [employer] SELLING Jul 20, 2025 05:54
[2025-07-20] MEDS: 0.9%NACL 1000ML 1,000 ML IV SCH (07:14)
--- NOTE | 2025-07-20 07:39 | NUR ---
REPORT GIVEN TO NURSE HUSAM
[2025-07-20 07:45] VITALS: O2SAT 98
--- NOTE | 2025-07-20 07:45 | NUR ---
ARRIVL Addendum: 07/20/25 at 0820 by ALEKSANDAR HIGUERA LVN LVN ARRIVAL ON UNIT. PATIENT ARRIVED FROM ED VIA BED AND AMBULATED FROM THE ED BED TO THE BED IN THE ROOM. NO DISTRESS WAS NOTED AT THIS TIME. THE PATIENT WAS ORIENTED TO THE ROOM AND INSTRUCTED TO CALL IF HE NEEDED ASSISTANCE WITH ANYTHING. THE PATIENT VERBALIZED UNDERSTANDING.
[2025-07-20 08:00] VITALS: BP 178/98; PULSE 89; RESP 16; TEMP 98.3
--- NOTE | 2025-07-20 11:04 | PN ---
Consulting physician:Dr Winters Consulting service: General surgery Reason for consultation: Acute cholecystitis History of present illness: This is an 84-year-old male consulted to surgery after presenting to the hospital with concerns of abdominal pain located in the bilateral lower quadrants and right upper quadrant associated with nausea and vomiting that began yesterday evening. Patient with recent history of cardiac valve replacement in June. On admission imaging performed an ultrasound concerning for thickened gallbladder wall with the possibility of acute cholecystitis. Patient is however with a normal white count. LFTs slightly elevated and bilirubin unremarkable. Since admission however patient's abdominal pain has improved. Patient remains NPO. Patient is currently on IV fluids and IV antibiotics Medical history: aortic stenosis, hypertension, hyperlipidemia, prostate cancer, and kidney stone Surgical history: Recent heart valve replacement in June Review of systems: General: No Fever, No Chills, No Night Sweats, No Fatigue, No Malaise, No Appetite, No Other HEENT: No Head Aches, No Visual Changes, No Eye Pain, No Ear Pain, No Dysphasia, No Sinus Congestion, No Post Nasal Drip, No Sore Throat, No Other Pulmonary: No Dyspnea, No Cough, No Pleuritic Chest Pain, No Other Cardiovascular: No: Chest Pain, Palpitations, Orthopnea, Paroxysmal No Dyspnea, Edema, Lt Headedness, Other Gastrointestinal: No: Nausea, Vomiting, Diarrhea, Constipation, Melena, Hematochezia, Other Genitourinary: No Dysuria, No Frequency, No Incontinence, No Hematuria, No Retention, No Other Musculoskeletal: No: other, neck pain, shoulder pain, arm pain, back pain, hand pain, leg pain, foot pain Skin: No Urticaria, No Rash, No Other Neurological: No: Weakness, Numbness, Incoordination, Change in speech, Confusion, Seizures, Other Physical exam: General: Awake alert and oriented Heart: Regular rate and rhythm} Lungs: Clear to auscultation no distress Abdomen: [Soft, nontender, nondistended Assessment: This is a 84-year-old male with concerns of acute cholecystitis Plan: At this point in time to better assess patient we will order HIDA scan We will also request cardiology and Cardiothoracic team that performed heart valve replacement to evaluate patient to assist with determination of surgical intervention needed With recent surgery if any cholecystitis noted on HIDA scan patient will likely need cholecystostomy tube Family and patient made aware of plan and agree with potential intervention Patient to remain NPO for now until HIDA scan complete Dr. Hammer has been updated in patient's status and surgical team will continue to follow patient closely Surgical case has been discussed with my supervising physician in the above plan was formulated and agreed upon Supervising physicians evaluation the patient be done within next 24 hours We appreciate the hospitalist team for us to participate in patient's care. Greater than 55 minutes of time spent patient, reviewing chart, working on documentation Vitals/Labs Vital Signs Date Time Temp Pulse Resp B/P (MAP) Pulse Ox O2 Delivery O2 Flow Rate FiO2 07/20/25 08:00 98.2 89 16 178/98 98 Room Air 21 07/20/25 07:45 0 Laboratory Tests 07/20/25 01:44 Medications Current Medications Hydralazine HCl 10 mg ONCE ONCE IV Last administered on 07/20/25at 02:27; Start 07/20/25 at 02:00; Stop 07/20/25 at 02:01; Status DC Ondansetron HCl 4 mg ONCE ONCE IVP Last administered on 07/20/25at 03:40; Start 07/20/25 at 03:30; Stop 07/20/25 at 03:31; Status DC Morphine Sulfate 2 mg ONCE ONCE IVP Last administered on 07/20/25at 03:41; Start 07/20/25 at 03:30; Stop 07/20/25 at 03:31; Status DC Piperacillin Sod/ Tazobactam Sod 3.375 gm ONCE ONCE IV Last administered on 07/20/25at 04:54; Start 07/20/25 at 04:30; Stop 07/20/25 at 04:31; Status DC Ondansetron HCl 4 mg Q6H PRN IV; Start 07/20/25 at 06:00; Stop 08/19/25 at 05:59 Piperacillin Sod/ Tazobactam Sod 50 ml @ 12.5 mls/hr Q8H IV; Start 07/20/25 at 13:00; Stop 07/30/25 at 12:59 Sodium Chloride 1,000 ml @ 100 mls/hr Q10H IV Last administered on 07/20/25at 07:14; Start 07/20/25 at 06:00; Stop 08/19/25 at 05:59 Pantoprazole Sodium 40 mg DAILY IVP Last administered on 07/20/25at 08:53; Start 07/20/25 at 09:00; Stop 08/19/25 at 08:59 GABE MENDES Jr. PAC Jul 20, 2025 11:04
[2025-07-20 11:47] VITALS: BP 170/76; PULSE 65; RESP 12; TEMP 97.5
[2025-07-20] MEDS ORDERED: IOHEXOL-350 75 ML VIAL IV ONE (12:24)
[2025-07-20] MEDS: ZOSYN 3.375GM+NS 50ML 50 ML IV SCH (12:54)
--- NOTE | 2025-07-20 14:39 | NUR ---
DCP:HOME Pt currently lives alone in his home. Pt denies any DME, home health, or provider services. Pt states that he is able to complete ADLs independently. PCP is Dr. Arley Mckeon and uses [facility] for any RX needs. At DC pt will want to go home and family can assist with transportation.
[2025-07-20 16:00] VITALS: BP 143/78; PULSE 70; RESP 16; TEMP 98.3
--- NOTE | 2025-07-20 19:14 | NUR ---
cardiology paged dr. hernandez to his office for new consult. pending call back.
[2025-07-20 19:15] VITALS: O2SAT 95
--- NOTE | 2025-07-20 19:23 | HMCIMG ---
Examination Hepatobiliary study History R/O CHOLECYSTITIS Technique Tc-99m mebrofenin were administered intravenously followed by acquisition of planar images of the abdomen. Findings Following administration of radiotracer, there is prompt appearance of normal hepatic contours, followed by appearance of activity in unremarkable appearing bile ducts. There is prompt filling of the gallbladder. The study is negative for acute cholecystitis. Decreased gallbladder ejection fraction of 26% reflecting gallbladder dyskinesia. IMPRESSION: 1. No acute cholecystitis. 2. Decreased gallbladder ejection fraction of 26%, consistent with gallbladder dyskinesia. /[place]
[2025-07-20 20:00] VITALS: BP 133/70; PULSE 65; RESP 20; TEMP 98.4
--- NOTE | 2025-07-20 23:53 | NUR ---
hypertension paged imelda uribe for patient's high blood pressure 170's and 180's systolic. pending call back.
[2025-07-21] VITALS (9 sets, daily range): BP systolic 113–184; BP diastolic 36–83; PULSE 64–83; RESP 16–20; TEMP 97.6–98.5; O2SAT 94–97
--- NOTE | 2025-07-21 03:49 | NUR ---
nurse note patient alert and oriented times 3. at bedside. plan of care discussed with them and they verbalized understanding. i also spoke with daughter on the phone for plan of care. patient showered tonight. he is ambulatory to the restroom. he has no pain. he has slept about 5 hours tonight. call light within reach, bed alarm on, 2 side rails up. will continue to monitor patient.
[2025-07-21 04:48] LABS: IMMATURE GRANULOCYTE ABSOLUTE 0.01 K/uL (0-1); NUCLEATED RED BLOOD CELLS 0.0 % (0.0-0.19); PLATELET COUNT (AUTO) 242 K/uL (130-400); RED BLOOD CELL COUNT(AUTO) 3.77 MIL/uL (4.50-6.20); RED CELL DISTRIBUTION WIDTH 14.5 % (11.0-15.5); WHITE BLOOD COUNT (AUTO) 4.7 K/uL (4.8-10.8)
[2025-07-21 04:52] LABS: INR 1.05 (0.85-1.15)
[2025-07-21 04:59] LABS: ASPARTATE AMINOTRANSFERASE 135.0 U/L (10-37); CREATININE 0.7 mg/dL (0.5-1.3); GLOMERULAR FILTR. RATE CALC 91.0 mL/min (>90); GLUCOSE,RANDOM 98.0 mg/dL (70-105); SODIUM SERUM 142.0 mmol/L (136-145); TOTAL PROTEIN, SERUM 6.0 g/dL (6.0-8.3); UREA NITROGEN, BLOOD 10.0 mg/dL (7-18)
--- NOTE | 2025-07-21 13:49 | PN ---
[facility] PROGRESS NOTE Date of Service: Jul 21, 2025 Time of Service: 13:43 SUBJECTIVE: [Patient evaluated in room 429. He currently denies any abdominal pain, nausea, or vomiting. Reports that his pain has been well controlled since admission. No new complaints at this time. HIDA scan was completed and revealed gallbladder dyskinesia. Patient is aware that we are awaiting final recommendations from the surgical team regarding further management. ] REVIEW OF SYSTEMS CONSTITUTIONAL: Denies fevers, chills, or night sweats. No unintentional weight loss reported. NEUROLOGICAL: Denies headache, amaurosis fugax, motor weakness, sensory deficit, vertigo/spinning sensation, gait abnormalities, or tremors. ENT: No hearing loss, otalgia, otorrhea, rhinitis, rhinorrhea, hoarseness, or sore throat. CARDIOVASCULAR: Denies any exertional angina, dyspnea on exertion, orthopnea, paroxysmal nocturnal dyspnea, palpitations, life-threatening arrhythmias, claudication. PULMONARY: Denies any shortness of breath, cough, phlegm/sputum, hemoptysis, pleuritic chest pain. SLEEP: Denies morning headaches, daytime somnolence or napping. Denies difficulty falling asleep, staying asleep, waking from sleep. Denies knowledge of snoring. GASTROINTESTINAL: Right upper quadrant, bilateral lower quadrant pain and nausea Denies any type of dysphagia to either liquids or solids. Denies vomiting, pyrosis, early satiety, abdominal pain, diarrhea, constipation, or changes in stool consistency or caliber. Denies coffee-ground emesis, hematemesis, hematochezia, or melanotic stools. GENITOURINARY: Denies frequency, urgency, nocturia, hematuria or incontinence (Storage/Irritative symptoms.) Low urinary stream, straining to void, urinary intermittency or hesitancy, splitting of the voiding stream, terminal dribbling. ENDOCRINOLOGIC: Denies polyuria, polydipsia, polyphagia or heat/cold intolerances. HEMATOLOGIC: Denies thrombophilia/previous clots, or coagulopathy/bleeding disorders. ONCOLOGIC: Denies personal history of malignancy. DERMATOLOGIC: Denies rashes or pruritus. PSYCHIATRIC: Denies any suicidal or homicidal ideation. Denies hallucinations. PHYSICAL EXAM GENERAL APPEARANCE: The patient is awake, alert, and oriented, in no acute cardiopulmonary distress. NEUROLOGICAL: Cranial nerves II-XII grossly intact. Motor is 5/5 in bilateral upper and lower extremities proximal to distal. No sensory deficits. HEENT: Face is symmetric. Pupils are equal and reactive. Extraocular movements are intact. NECK: Supple. No JVD. No thyromegaly. No submental, submandibular, pre- /postauricular, occipital or supraclavicular lymphadenopathy. CHEST: Normal chest expansion. No Telemetry. LUNGS: Absence of any rales, rhonchi or any wheezing. CARDIOVASCULAR: Regular. S1 and S2 normal. No appreciable rubs, murmurs or gallops. ABDOMEN: Soft, nontender, and nondistended. There is no rebound, voluntary guarding, or rigidity. : Deferred. No Newman. EXTREMITIES: Non-edematous and not cyanotic. No clubbing. Good capillary refill. SKIN: No skin breakdown. Vital Signs (last 8hr) Date Time Temp Pulse Resp B/P (MAP) Pulse Ox O2 Delivery O2 Flow Rate FiO2 07/21/25 12:00 97.5 74 16 159/83 97 Room Air 21 07/21/25 11:04 94 Room Air* 0 21 07/21/25 08:00 97.9 83 16 113/68 94 Room Air 21 LABS: Laboratory: Test 07/21/25 04:06 07/20/25 03:16 07/20/25 01:44 Range/Units White Blood Count 4.7 L 4.8-10.8 K/uL Red Blood Count 3.77 L 4.50-6.20 MIL/uL Hemoglobin 10.8 L 14.0-18.0 g/dL Hematocrit 32.8 L 42-54 % Mean Corpuscular Volume 87.0 79-99 fL Mean Corpuscular Hemoglobin 28.6 27.0-33.0 pg Mean Corpuscular Hemoglobin Concent 32.9 32.0-36.0 g/dL Red Cell Distribution Width 14.5 11.0-15.5 % Platelet Count 242 130-400 K/uL Mean Platelet Volume 10.3 7.5-10.5 fL Immature Granulocyte % (Auto) 0.2 0-1 % Neutrophils (%) (Auto) 65.0 40.0-77.0 % Lymphocytes (%) (Auto) 17.4 L 21.0-51.0 % Monocytes (%) (Auto) 8.5 3.0-13.0 % Eosinophils (%) (Auto) 8.3 H 0.0-8.0 % Basophils (%) (Auto) 0.6 0.0-5.0 % Neutrophils # (Auto) 3.1 1.8-7.7 K/uL Lymphocytes # (Auto) 0.8 L 1.0-4.8 K/uL Monocytes # (Auto) 0.4 0.1-1.0 K/uL Eosinophils # (Auto) 0.39 0.00-0.70 K/uL Basophils # (Auto) 0.03 0.00-0.20 K/uL Absolute Immature Granulocyte (auto 0.01 0-1 K/uL Nucleated Red Blood Cells 0.0 0.0-0.19 % Prothrombin Time 11.1 9.6-11.6 SEC Prothromb Time International Ratio 1.05 0.85-1.15 Activated Partial Thromboplast Time 25.9 L 26.3-35.5 SEC Sodium Level 142 136-145 mmol/L Potassium Level 3.5 3.5-5.1 mmol/L Chloride Level 106 101-111 mmol/L Carbon Dioxide Level 28 21-32 mmol/L Blood Urea Nitrogen 10 7-18 mg/dL Creatinine 0.7 0.5-1.3 mg/dL Glomerular Filtration Rate Calc 91 >90 mL/min Random Glucose 98 70-105 mg/dL Total Calcium 8.5 8.5-10.1 mg/dL Magnesium Level 2.00 1.80-2.40 mg/dL Total Bilirubin 0.6 0.2-1.0 mg/dL Aspartate Amino Transf (AST/SGOT) 135 H 10-37 U/L Alanine Aminotransferase (ALT/SGPT) 244 H 12-78 U/L Alkaline Phosphatase 121 50-136 U/L Total Protein 6.0 6.0-8.3 g/dL Albumin 2.9 L 3.5-5.0 g/dL Urine Color LIGHT-YELLOW YELLOW Urine Appearance CLEAR CLEAR Urine pH 7.0 5.0-8.0 Urine Specific [place] 1.027 1.001-1.031 Urine Protein NEGATIVE NEGATIVE mg/dL Urine Glucose (UA) NEGATIVE NEGATIVE mg/dL Urine Ketones NEGATIVE NEGATIVE mg/dL Urine Occult Blood NEGATIVE NEGATIVE Urine Nitrate NEGATIVE NEGATIVE Urine Bilirubin NEGATIVE NEGATIVE mg/dL Urine Urobilinogen 0.2 0.2-1.0 mg/dL Urine Leukocyte Esterase NEGATIVE NEGATIVE Olivier/uL White Cell Morphology Comment See comments Direct Bilirubin 0.4 H 0.0-0.3 mg/dL Troponin I High Sensitivity 18 4-75 ng/L Lipase 56 16-77 U/L Current Medications Medications (Trade) Dose Ordered Sig/Latasha Route PRN Reason Start Time Stop Time Status Last Admin Dose Admin Hydralazine HCl (APRESOLine 20MG INJ) 10 mg Q6H PRN IV ADMINISTER FOR SBP > 160 07/21/25 00:00 08/20/25 00:00 07/21/25 00:22 10 MG Ondansetron HCl (zoFRAN 4MG INJ) 4 mg Q6H PRN IV NAUSEA/VOMITING 07/20/25 06:00 08/19/25 05:59 Pantoprazole Sodium (PROTonix 40MG INJ) 40 mg DAILY IVP 07/20/25 09:00 08/19/25 08:59 07/21/25 09:04 40 MG Piperacillin Sod/ Tazobactam Sod 50 ml @ 12.5 mls/hr Q8H IV 07/20/25 13:00 07/30/25 12:59 07/21/25 12:47 12.5 MLS/HR Potassium Chloride 100 ml @ 50 mls/hr AD PRN IV POTASSIUM PROTOCOL 07/21/25 06:30 08/20/25 06:29 07/21/25 06:12 50 MLS/HR Sodium Chloride 1,000 ml @ 100 mls/hr Q10H IV 07/20/25 06:00 08/19/25 05:59 07/21/25 00:18 100 MLS/HR DIAGNOSTICS / RADIOLOGY: [ ] ASSESSMENT: Gallbladder dyskinesia per HIDA scan, POA Suspected acute cholecystitis ruled out POA Uncontrolled hypertension POA Transaminitis POA possible Right inguinal pstsurgical seroma per CT POA Chronic anemia POA History of aortic stenosis with valve replacement POA PLAN: Patient will continue in medical telemetry a We will keep nothing by mouth Continue NS 100 mL x1 bag Continue on Zosyn IV Q 8 hours for empiric coverage Continue on Protonix 40 mg IV daily for GI prophylaxis We will replace electrolytes as needed per protocol We will add prn medication for fever,pain,cough , nausea and vomiting We will reconcile home meds once medlist available Cardiac clearance per general surgeon Appreciate recommendations from general surgery We will request labs in am Further orders to follow depending on above results Case discussed with attending physician and came up with above treatment and plan of care. ATTESTATION BY PHYSICIAN I have seen and examined the patient. I reviewed the documentation, medical decision making, and treatment plan as noted by the mid-level provider above. I agree with the findings and plan of care. MANNY WHALEN MD, [facility] Jul 21, 2025 13:49
--- NOTE | 2025-07-21 14:55 | PN ---
This is an 84-year-old male consulted to surgery for concerns of acute cholecystitis Interval history: This 84-year-old male seen in his room resting No acute events reported overnight Abdominal pain reported Patient underwent HIDA scan yesterday consistent with biliary dyskinesia No acute cholecystitis noted Patient is still NPO Labs and vitals stable Physical exam General: Awake alert and oriented Heart: Regular rate and rhythm} Lungs: Clear to auscultation no distress Abdomen: [Soft, nontender, nondistended Assessment : This is an 84-year-old male with concerns of biliary dyskinesia Plan: From surgical standpoint no further intervention planned Patient welcome to follow up in outpatient setting for elective cholecystectomy at appropriate time after recent heart valve replacement Continue with Cardiothoracic recommendations Patient to be allowed diet advanced as tolerated Surgical team to sign off at this time. Thank you Surgical case has been discussed with my supervising physician in the above plan was formulated and agreed upon We appreciate the hospitalist team for us to participate in patient's care. Greater than 45 minutes of time spent patient, reviewing chart, working on documentation Vitals/Labs Vital Signs Date Time Temp Pulse Resp B/P (MAP) Pulse Ox O2 Delivery O2 Flow Rate FiO2 07/21/25 12:00 97.5 74 16 159/83 97 Room Air 21 07/21/25 11:04 0 Laboratory Tests 07/21/25 04:06 Medications Current Medications Hydralazine HCl 10 mg ONCE ONCE IV Last administered on 07/20/25at 02:27; Start 07/20/25 at 02:00; Stop 07/20/25 at 02:01; Status DC Ondansetron HCl 4 mg ONCE ONCE IVP Last administered on 07/20/25at 03:40; Start 07/20/25 at 03:30; Stop 07/20/25 at 03:31; Status DC Morphine Sulfate 2 mg ONCE ONCE IVP Last administered on 07/20/25at 03:41; Start 07/20/25 at 03:30; Stop 07/20/25 at 03:31; Status DC Piperacillin Sod/ Tazobactam Sod 3.375 gm ONCE ONCE IV Last administered on 07/20/25at 04:54; Start 07/20/25 at 04:30; Stop 07/20/25 at 04:31; Status DC Ondansetron HCl 4 mg Q6H PRN IV; Start 07/20/25 at 06:00; Stop 08/19/25 at 05:59 Piperacillin Sod/ Tazobactam Sod 50 ml @ 12.5 mls/hr Q8H IV Last administered on 07/21/25at 12:47; Start 07/20/25 at 13:00; Stop 07/30/25 at 12:59 Sodium Chloride 1,000 ml @ 100 mls/hr Q10H IV Last administered on 07/21/25at 00:18; Start 07/20/25 at 06:00; Stop 08/19/25 at 05:59 Pantoprazole Sodium 40 mg DAILY IVP Last administered on 07/21/25at 09:04; Start 07/20/25 at 09:00; Stop 08/19/25 at 08:59 Iohexol 75 ml STK-MED ONCE IV; Start 07/20/25 at 12:24; Stop 07/20/25 at 12:24; Status DC Hydralazine HCl 10 mg Q6H PRN IV Last administered on 07/21/25at 00:22; Start 07/21/25 at 00:00; Stop 08/20/25 at 00:00 Potassium Chloride 100 ml @ 50 mls/hr AD PRN IV Last administered on 07/21/25at 06:12; Start 07/21/25 at 06:30; Stop 08/20/25 at 06:29 GABE MENDES Jr. PAC Jul 21, 2025 14:54
[2025-07-21] MEDS ORDERED: PoTASSium chl 10% ELIXIR 20MEQ 20 MEQ/15 ML UDCUP PO PRN (20:30)
[2025-07-22] VITALS: BP 160/77; PULSE 71; RESP 18; TEMP 97.8
--- NOTE | 2025-07-22 02:50 | NUR ---
nurse note patient alert and oriented times 3. plan of care discussed with him and his . they verbalized understanding. patient has no pain tonight. he walks to the restroom with assistance. he has slept about 6 hours tonight. call light within reach, bed alarm on, 2 side rails up. will continue to monitor patient.
[2025-07-22] MEDS: PoTASSium chloRIDE 20MEQ ER 20 MEQ ERTAB PO PRN (03:48)
[2025-07-22 04:00] VITALS: BP 153/79; PULSE 73; RESP 18; TEMP 97.6
[2025-07-22 08:00] VITALS: BP 154/76; PULSE 70; RESP 16; TEMP 98.5
[2025-07-22 09:26] VITALS: O2SAT 96
[2025-07-22 12:00] VITALS: BP 133/79; PULSE 65; RESP 16; TEMP 98.1
--- NOTE | 2025-07-22 15:51 | DS ---
Discharge Summary Hospital Course Summary: Mr. Jose Lieberman, an 84-year-old male with a history of aortic stenosis (s/p valve replacement June 2025), hypertension, hyperlipidemia, prostate cancer, and nephrolithiasis, was admitted on 07/20/25 for evaluation of acute abdominal pain localized to the bilateral lower quadrants and right upper quadrant, associated with nausea but no vomiting. He denied fever, chills, or other systemic symptoms. Initial labs revealed mild leukocytosis, chronic anemia, and transaminitis. Imaging (CT abdomen/pelvis) was notable for acute calculous cholecystitis and a right inguinal postsurgical seroma. RUQ ultrasound showed gallbladder wall thickening, but findings were equivocal for acute cholecyst itis. The patient was started on empiric IV antibiotics (piperacillin-tazobactam), IV fluids, and GI prophylaxis (pantoprazole). He was maintained NPO and monitored on telemetry due to his recent cardiac surgery. General surgery and cardiology were consulted. A HIDA scan was performed, which demonstrated gallbladder dyskinesia without evidence of acute cholecystitis. During his hospital stay, the patients abdominal pain and nausea resolved with conservative management. He remained afebrile and hemodynamically stable, with no recurrence of symptoms. Laboratory values trended toward baseline, and no new complications arose. General surgery recommended no acute surgical intervention, with consideration for elective cholecystectomy in the outpatient setting after further cardiac recovery. The patients diet was advanced as tolerated, and he continued to do well clinically. He was discharged in stable condition with instructions for close outpatient follow-up with primary care, general surgery, and cardiology, as well as education on signs and symptoms warranting prompt medical attention. Leather Coater(s): Dr Hammer- surgeon Procedure(s): HIDA scan07/21/25 - HIDA scan ruled out acute cholecystitis; diagnosis revised to biliary dyskinesia. Assessment/Plan: DC Diagnoses: Primary Diagnosis: Biliary dyskinesia (initially suspected acute cholecystitis) Secondary Diagnoses: Uncontrolled hypertension Transaminitis Chronic anemia History of aortic stenosis, s/p valve replacement (06/2025) Right inguinal postsurgical seroma Hyperlipidemia Prostate cancer (history) Nephrolithiasis (history) Admitting Diagnoses: Gallbladder dyskinesia per HIDA scan, POA Suspected acute cholecystitis ruled out POA Uncontrolled hypertension POA Transaminitis POA possible Right inguinal pstsurgical seroma per CT POA Chronic anemia POA History of aortic stenosis with valve replacement POA PLAN: Patient will continue in medical telemetry a We will keep nothing by mouth Continue NS 100 mL x1 bag Continue on Zosyn IV Q 8 hours for empiric coverage Continue on Protonix 40 mg IV daily for GI prophylaxis We will replace electrolytes as needed per protocol We will add prn medication for fever,pain,cough , nausea and vomiting We will reconcile home meds once medlist available Cardiac clearance per general surgeon Appreciate recommendations from general surgery We will request labs in am Further orders to follow depending on above results Case discussed with attending physician and came up with above treatment and plan of care. Discharge Instructions: FOLLOW-UP INSTRUCTIONS Primary Care: Within 1 week for ongoing management of chronic conditions and medication reconciliation. General Surgery: Outpatient follow-up for consideration of elective cholecystectomy after full cardiac recovery. Cardiology: Continue routine follow-up for valve replacement and cardiac management. Wound Care/Surgery: Monitor right inguinal seroma as outpatient. Return to ED: For fever, recurrent abdominal pain, jaundice, vomiting, chest pain, or any new concerning symptoms. PATIENT EDUCATION Signs and symptoms of biliary colic, cholecystitis, and when to seek immediate care. Importance of medication adherence and follow-up appointments. Dietary recommendations as tolerated. Home Medications: Active Scripts Famotidine (Famotidine) 20 Mg Tablet, 20 MG PO BID, #60 TAB Prov:NAHUN BAUMANN [facility] 06/28/25 Atorvastatin Calcium (LIPITOR) 40 Mg Tablet, 40 MG PO HS, #60 TAB Prov:NAHUN BAUMANN [facility] 06/28/25 Aspirin (ASPIRIN 81 MG ECTAB) 81 Mg Ectab, 81 MG PO DAILY, #60 TAB.EC Prov:NAHUN BAUMANN [facility] 06/28/25 Reported Medications Metoprolol Tartrate (Metoprolol Tartrate) 25 Mg Tablet, 1 TAB PO BID for 30 Days, #60 TAB 0 Refills 07/20/25 Furosemide (Furosemide) 20 Mg Tablet, 1 TAB PO DAILY for 30 Days, #30 TAB 0 Refills 07/04/25 Ergocalciferol (Vitamin D2) (Vitamin D2) 1,250 Mcg Capsule, 1250 MCG PO QWEEK, CAP 11/18/21 Discontinued Reported Medications Clonidine HCl (Clonidine HCl) 0.1 Mg Tablet, 0.1 MG PO DAILY PRN for IF SBP GREATER THAN 150, TAB 06/09/25 Prednisolone Acetate/Pf (Prednisolone Acet 1% Eye Drop) 1 % Drops.susp, 5 ML OP QID PRN for ITCHING MDD 1, DROP 11/18/21 Continued Medications: Aspirin (Aspirin 81 Mg Ectab) 81 Mg Ectab 81 MG PO DAILY, #60 TAB.EC Atorvastatin Calcium (Lipitor) 40 Mg Tablet 40 MG PO HS, #60 TAB Ergocalciferol (Vitamin D2) (Vitamin D2) 1,250 Mcg Capsule 1250 MCG PO QWEEK, CAP Famotidine (Famotidine) 20 Mg Tablet 20 MG PO BID, #60 TAB Furosemide (Furosemide) 20 Mg Tablet 1 TAB PO DAILY for 30 Days, #30 TAB 0 Refills Metoprolol Tartrate (Metoprolol Tartrate) 25 Mg Tablet 1 TAB PO BID for 30 Days, #60 TAB 0 Refills Time spent arranging discharge: 31-60 minutes ATTESTATION BY PHYSICIAN I have seen and examined the patient. I reviewed the documentation, medical decision making, and treatment plan as noted by the mid-level provider above. I agree with the findings and plan of care. MANNY WHALEN MD, [facility] Jul 22, 2025 15:51
--- NOTE | 2025-07-22 16:11 | NUR ---
DISCHARGE PATIENT IV LINE REMOVED AT THIS TIME. THE PATIENT TOLERATED THE PROCEDURE WELL. POST DISCHARGE INSTRUCTIONS REVIEWED WITH THE PATIENT. PATIENT TO SEE DR MARIEE OUTPATIENT FOR ELECTIVE SURGERY. PATIENT REMINDED TO TAKE ALL BELONGINGS PRIOR TO BEING DISCHARGED FROM THE HOSPITAL. THE PATIENT AND FAMILY AT BEDSIDE VERBALIZED UNDERSTANDING.
--- NOTE | 2025-07-23 22:49 | CONS ---
HISTORY OF PRESENT ILLNESS: This is an 84-year-old male who has a history of severe aortic stenosis and 4 weeks ago had a minimally invasive aortic valve replacement. He did well after surgery. He was known to have normal ejection fraction prior to surgery. He was known to have only moderate coronary artery disease with no need for bypass or stents. In addition, he has a history of hypertension, prostate cancer, and kidney stones. The blood pressure lately has been quite high. Apparently, the blood pressure has been quite high since valsartan was stopped because of cough. Yesterday, he was having abdominal pain and was admitted for further observation. CAT scan did show some seroma in the right inguinal area and also showed possible cholecystitis. HIDA did not confirm cholecystitis. The white count is normal. The patient has been n.p.o. since yesterday, but is starting some soft diet now. There has been no further abdominal complaint. The patient tells me that he recovered very fast after the minimally invasive aortic valve replacement. He did not feel any chest pain or shortness of breath upon discharge. He was active. There is no history of near syncope or syncope recently. Although a 12-lead EKG is not available in the chart, telemetry shows normal rhythm with normal CA interval. Troponins have been normal. The CBC is unremarkable. Creatinine is normal. Liver function tests are marginally elevated. Recent echocardiogram had shown an ejection fraction at 60% with severe aortic stenosis with a valve area of 0.7 cm2 before surgery. Further tests include a potassium of 3.9, creatinine 0.7, albumin of 3.2, and lipase normal at 56. REVIEW OF SYSTEMS: CONSTITUTIONAL: There is no weight loss, fatigue, fever. EYES: No blurry vision. ENT: No difficulty swallowing. RESPIRATORY: No complaints. CARDIAC: No complaints. GASTROINTESTINAL: As mentioned before. GENITOURINARY: No complaints. OSTEOARTICULAR: No complaints. MOOD AND AFFECT: No depression, no anxiety. SKIN: No masses, no rashes. HEMATOLOGIC: No spontaneous mucosal bleeding. PHYSICAL EXAMINATION: VITAL SIGNS: Blood pressure 140/80, heart rate 70, respiratory rate 16. HEENT: Exam of the head, no masses, no lesion. Mucosa is pink and moist. No jaundice. NECK: JVD is negative. Carotid is palpable. LUNG: Clear to auscultation. HEART: Regular rhythm. S1 and S2 present. No S3. No S4. No gallop. No rub. ABDOMEN: No organomegaly. No masses. No tenderness. No rebound. Bowel sounds are normal. LIMBS: No edema. Pulses present. NEUROLOGICAL: Alert and oriented x3, nonfocal. SKIN: Warm and dry. JOINTS: No effusions. No deformities ASSESSMENT AND PLAN: * Recent bioprosthetic minimally invasive aortic valve replacement 4 weeks ago. * Mild to moderate coronary artery disease. * Hypertension, which has been out of control. The family reports that the blood pressure has been between 175-200 mmHg at home in the last few days since the valsartan was stopped. Valsartan was stopped because of cough. * Hyperlipidemia. * Prostate cancer. * Kidney stones. * Gallbladder stones. Apparently, as per the tests and as per the surgical consultants, there is no clear cholecystitis. However, from the cardiac standpoint, the patient can, if necessary, undergo abdominal surgery with mild to moderate risk. He had only a minimally invasive bioprosthetic aortic valve replacement with no need for coronary bypass. His cardiac status is actually quite stable except for the persistent high blood pressure. We will adjust medications as needed for this purpose. TID: [id number] RECEIPT: [id number]
== END 2025-07-22 16:11 | disposition home or self-care (01) | DRG 445 ==
LOC: EDH 01:22 → EDHIP 06:00 → 4DH 07:45
PROVIDERS: ADMIT Hospitalist; ATTEND Hospitalist
DX: K82.8 Other specified diseases of gallbladder (principal); J90 Pleural effusion, not elsewhere classified; D64.9 Anemia, unspecified; I10 Essential (primary) hypertension; I35.0 Nonrheumatic aortic (valve) stenosis; K76.0 Fatty (change of) liver, not elsewhere classified; J98.11 Atelectasis; E78.00 Pure hypercholesterolemia, unspecified; N20.0 Calculus of kidney; I25.10 Atherosclerotic heart disease of native coronary artery without angina pectoris; Z82.49 Family history of ischemic heart disease and other diseases of the circulatory system; Z95.3 Presence of xenogenic heart valve; Z85.46 Personal history of malignant neoplasm of prostate; Z87.442 Personal history of urinary calculi
CPT/HCPCS: 36415; 71045; 74177; 76705; 78227; 80048; 80053; 80076; 81003; 83690; 83735; 84484; 85025; 85610; 85730; 93005; 96374; 96375; 99285; A9537; G0378; J0360; J2270; J2405; J2470; J2543; J3480; J7030; Q9967